=== PATIENT | male | born 1955 | race Caucasian/White ===

== ENCOUNTER 2018-10-08 16:13 | Emergency (ER) | payer OTHER ==
[~2018-10-08] VITALS: Ht 175.3 cm; Wt 76.1 kg
[2018-10-08] MEDS ORDERED: GLUCAGON 1 MG IVPush ONE (17:00)
[2018-10-08] MEDS ORDERED: GLUCAGON 1 MG ONE (17:20)
[2018-10-08 17:37] VITALS: BP 133/77
--- NOTE | 2018-10-08 17:59 | NUR ---
PT IN ROOM AND IN BED. IV ACCESS OBTAINED. PT IN BED WITH WALL SUCTION IN HAND. PT ABLE TO SUCTION SECRETIONS ON HIS OWN. NIBP, CARDIAC, AND PULSE OX IN PLACE.
[2018-10-08] MEDS ORDERED: PROPOFOL 10 MG/ML, 20ML ONE (18:16)
[2018-10-08] MEDS ORDERED: PROPOFOL 10 MG/ML, 20ML IVPush ONE (18:30)
--- NOTE | 2018-10-08 18:40 | NUR ---
PROCEDURE COMPLETE AT THIS TIME. LARGE PEICE OF CHICKEN REMOVED FROM ESOPHAGUS.
--- NOTE | 2018-10-08 19:38 | NUR ---
pt got up to go to the bathroom. this rn was stopped by pt in hallway and was ask when he would be discharged. at this time pt is fully clothed. pt and were given discharge instructions at this time and pt walked to discharge. this rn upon departing charting noticed the iv was never charted by the tech and was never removed. no demographic data present in pts chart. 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
--- NOTE | 2018-10-08 19:51 | NUR ---
[facility] called and information given to them regarding the pt
== END 2018-10-08 19:45 | disposition home or self-care (01) ==
LOC: ED 19:39
DX: T18.128A Food in esophagus causing other injury, initial encounter (principal); J44.9 Chronic obstructive pulmonary disease, unspecified; Z87.891 Personal history of nicotine dependence; X58.XXXA Exposure to other specified factors, initial encounter; Y93.89 Activity, other specified; Y92.89 Other specified places as the place of occurrence of the external cause; Y99.8 Other external cause status
CPT/HCPCS: 43247; 93005; 96374; 99152; 99285; J1610